=== PATIENT | male | born 1990 | race Caucasian/White ===

== ENCOUNTER 2023-08-10 08:38 | Emergency (ER) | payer MEDICAID ==
[~2023-08-10] VITALS: Ht 162.6 cm; Wt 89.0 kg
[2023-08-10 08:40] VITALS: BP 140/85; PULSE 89; O2SAT 100
[2023-08-10 09:00] VITALS: TEMP 99.2
[2023-08-10] MEDS ORDERED: ACETAMINOPHEN 325MG TABLET PO NR (09:00)
[2023-08-10] MEDS ORDERED: TOPUD MT (10:30)
[2023-08-10] MEDS ORDERED: DIPH25TA26 MT (10:30)
[2023-08-10] MEDS ORDERED: ACYC200O PO (10:30)
[2023-08-10] MEDS ORDERED: SULF1TAB48 MT (10:30)
== END 2023-08-10 11:18 | disposition home or self-care (01) ==
LOC: ER 08:38
DX: R21 Rash and other nonspecific skin eruption (principal); F12.10 Cannabis abuse, uncomplicated
CPT/HCPCS: 71045; 99283

== ENCOUNTER 2023-08-18 10:25 | Emergency (ER) | payer MEDICAID ==
[~2023-08-18] VITALS: Ht 167.6 cm; Wt 87.0 kg
[~2023-08-18 10:25] MED LIST: ACYC200O PO; DIPH25TA26 MT; SULF1TAB48 MT; TOPUD MT
[2023-08-18 10:36] VITALS: O2SAT 100
[2023-08-18] MEDS ORDERED: KETOROLAC 60MG/2ML VIAL IM NR (10:45)
[2023-08-18 11:19] LABS: BASOPHILS % 0.4 % (0.0-2.0); HEMATOCRIT. 39.6 % (42.0-52.0); HEMOGLOBIN. 13.1 g/dL (14.0-18.0); LYMPHOCYTES % 12.4 % (20.0-50.0); MEAN CORPUSCULAR HEMOGLOBIN 30.6 pg (28.0-32.0); MEAN CORPUSCULAR HGB CONC 33.2 g/dL (31.0-37.0); MEAN CORPUSCULAR VOLUME 92.2 fL (80.0-94.0); MEAN PLATELET VOLUME 7.9 fl (7.4-10.4); MONOCYTES % 10.5 % (2.0-8.0); NEUTROPHILS % 75.7 % (40.0-76.0); PLATELET 367 x1000/uL (130-400); RED CELL DISTRIBUTION WIDTH 12.9 % (11.6-14.6); WHITE BLOOD COUNT 11.5 x1000/uL (4.5-11.0)
[2023-08-18 11:32] LABS: CALCIUM 9.1 mg/dL (8.7-10.4); CARBON DIOXIDE 27 mEq/L (21-32); CHLORIDE 101 mEq/L (98-107); CREATININE 0.6 mg/dL (0.6-1.3); GLUCOSE 124 mg/dL (70-105); POTASSIUM 4.7 mEq/L (3.5-5.1); SODIUM 133 mEq/L (136-145); UREA NITROGEN BLOOD 11 mg/dL (9-23)
[2023-08-18] MEDS ORDERED: IBUP-2029 MT (12:58)
[2023-08-18] MEDS ORDERED: AMOX1TAB16 MT (12:58)
[2023-08-18 15:21] VITALS: BP 116/76; PULSE 86; RESP 18; TEMP 98.5
== END 2023-08-18 15:24 | disposition home or self-care (01) ==
LOC: ER 10:25
DX: I80.9 Phlebitis and thrombophlebitis of unspecified site (principal); F12.10 Cannabis abuse, uncomplicated
CPT/HCPCS: 36415; 80048; 85025; 93971; 99284